=== PATIENT | male | born 2000 | race Hispanic/Latino ===

== ENCOUNTER 2023-09-06 12:16 | Emergency (ER) | payer OTHER ==
[~2023-09-06] VITALS: Ht 170.2 cm; Wt 96.3 kg
[2023-09-06] MEDS ORDERED: SODIUM CHLORIDE 0.9% 1000ML 1,000 ML IV SCH (12:45)
[2023-09-06] MEDS ORDERED: ZONEGRAN100 MG PO (13:06)
[2023-09-06] MEDS ORDERED: SODIUM CHLORIDE 0.9% 1000ML 1,000 ML ONE (13:12)
[2023-09-06] MEDS ORDERED: LANCET 30G-GLU1 EACH (15:34)
[2023-09-06] MEDS ORDERED: METFORMIN HCL500 MG PO (15:34)
[2023-09-06] MEDS ORDERED: BLOOD GLUCOSE1 EAC1 (15:34)
[2023-09-06] MEDS ORDERED: ONDANSETRON ODT4 MG PO (15:35)
[2023-09-06 15:46] VITALS: O2SAT 97
== END 2023-09-06 15:46 | disposition home or self-care (01) ==
LOC: FSED 12:21
DX: R19.7 Diarrhea, unspecified (principal); E11.65 Type 2 diabetes mellitus with hyperglycemia; M62.82 Rhabdomyolysis; R94.5 Abnormal results of liver function studies; R74.8 Abnormal levels of other serum enzymes
CPT/HCPCS: 36415; 80048; 80076; 81003; 82948; 85025; 99284; J7030